=== PATIENT | female | born 1935 | race Hispanic/Latino ===

== ENCOUNTER 2021-10-01 06:26 | Inpatient (IN) | payer MEDICARE, OTHER ==
[~2021-10-01] VITALS: Ht 152.4 cm; Wt 61.3 kg
[2021-10-01] MEDS ORDERED: ONDANSETRON 4MG INJ IVP ONE (06:30)
[2021-10-01] MEDS ORDERED: MORPHINE 4 MG SYG IVP ONE (06:30)
[2021-10-01 06:49] LABS: BASOPHILS % (AUTO) 1.4 % (0.0-5.0); EOSINOPHILS % (AUTO) 3.5 % (0.0-8.0); HEMATOCRIT 33.2 % (36-48); LYMPHOCYTES % (AUTO) 22.9 % (21.0-51.0); MEAN CORPUSCULAR HEMOGLOBIN 25.7 pg (27.0-33.0); MEAN CORPUSCULAR HGB CONC 31.9 g/dL (32.0-36.0); MEAN CORPUSCULAR VOLUME 80.6 fL (79-99); MONOCYTES % (AUTO) 6.8 % (3.0-13.0); NEUTROPHILS % (AUTO) 63.6 % (40.0-77.0); PLATELET COUNT (AUTO) 267 K/uL (130-400); RED BLOOD CELL COUNT(AUTO) 4.12 MIL/uL (4.00-5.50); RED CELL DISTRIBUTION WIDTH 16.7 % (11.0-15.5)
[2021-10-01 07:01] LABS: ALBUMIN 3.9 g/dL (3.5-5.0); CREATININE 1.2 mg/dL (0.5-1.5); POTASSIUM 4.5 mmol/L (3.5-5.1); TOTAL PROTEIN, SERUM 7.4 g/dL (6.0-8.3)
[2021-10-01] MEDS ORDERED: METF-526 PO (10:32)
[2021-10-01] MEDS ORDERED: PRAV20TA4 PO (10:32)
[2021-10-01] MEDS ORDERED: LEVO25TA85 PO (10:32)
[2021-10-01] MEDS ORDERED: LOSA50TA64 PO (10:32)
[2021-10-01] MEDS ORDERED: AMLO-257 PO (10:32)
[2021-10-01] MEDS ORDERED: ASPI-1443 PO (10:32)
[2021-10-01] MEDS ORDERED: WARF3TAB59 PO (10:33)
[2021-10-01 10:51] LABS: INR 2.06 (0.85-1.15); PROTHROMBIN TIME 21.6 SEC (9.6-11.6)
[2021-10-01 10:52] LABS: PARTIAL THROMBOPLASTIN TIME 29.8 SEC (26.3-35.5)
[2021-10-01] MEDS ORDERED: ONDANSETRON 4MG INJ IVP PRN (11:30)
[2021-10-01] MEDS ORDERED: ACETAMINOPHEN 325 MG TAB PO PRN (11:30)
[2021-10-01] MEDS ORDERED: HYDRALAZINE 20MG/ML VIAL IV PRN (11:30)
[2021-10-01] MEDS ORDERED: GLUCAGON 1MG KIT 1 MG ML IM PRN (12:30)
[2021-10-01] MEDS ORDERED: DEXTROSE 50%-WATER 50 ML DISP.SYRIN IV PRN (12:30)
[2021-10-01 14:45] VITALS: BP 152/90
[2021-10-01] MEDS: MORPHINE 2 MG SYG IVP PRN ×2 (14:46→21:02)
[2021-10-01] MEDS: INSULIN HUMULIN R 100 UNIT/ML 3ML SQ SCH ×2 (16:30→21:00)
[2021-10-01] MEDS: WARFARIN SODIUM 1 MG TAB PO SCH (16:58)
[2021-10-01 20:00] VITALS: BP 134/83
[2021-10-01] MEDS: SIMVASTATIN 20 MG TABLET PO SCH (21:01)
[2021-10-01] MEDS: LOSARTAN 50 MG TABLET PO SCH (21:01)
[2021-10-02] VITALS (7 sets, daily range): BP systolic 126–146; BP diastolic 57–83
[2021-10-02] MEDS: MORPHINE 2 MG SYG IVP PRN ×4 (04:29→18:02)
[2021-10-02 05:26] LABS: HEMATOCRIT 32.2 % (36-48); MEAN CORPUSCULAR HEMOGLOBIN 26.1 pg (27.0-33.0); MEAN CORPUSCULAR HGB CONC 32.9 g/dL (32.0-36.0); MEAN CORPUSCULAR VOLUME 79.3 fL (79-99); RED BLOOD CELL COUNT(AUTO) 4.06 MIL/uL (4.00-5.50); RED CELL DISTRIBUTION WIDTH 16.7 % (11.0-15.5); WHITE BLOOD COUNT (AUTO) 7.3 K/uL (4.8-10.8)
[2021-10-02 05:34] LABS: CREATININE 1.1 mg/dL (0.5-1.5)
[2021-10-02 05:37] LABS: INR 2.61 (0.85-1.15); PROTHROMBIN TIME 26.9 SEC (9.6-11.6)
[2021-10-02 05:39] LABS: HEMOGLOBIN A1C 6.9 % (4.0-6.0)
[2021-10-02] MEDS: LEVOTHYROXINE 25 MCG TABLET PO SCH (06:40)
[2021-10-02] MEDS: INSULIN HUMULIN R 100 UNIT/ML 3ML SQ SCH ×4 (06:42→21:00)
[2021-10-02] MEDS: ASPIRIN 81 MG EC TAB PO SCH (09:43)
[2021-10-02] MEDS: CALCITONIN 3.7 ML AEROSOL NS SCH (09:43)
[2021-10-02] MEDS: AMLODIPINE 5 MG TAB PO SCH (09:43)
[2021-10-02] MEDS: LOSARTAN 50 MG TABLET PO SCH ×2 (09:43→21:29)
[2021-10-02] MEDS: WARFARIN SODIUM 1 MG TAB PO SCH (16:29)
[2021-10-02] MEDS ORDERED: MORPHINE 4 MG SYG IVP PRN (19:00)
[2021-10-02] MEDS: SIMVASTATIN 20 MG TABLET PO SCH (21:29)
[2021-10-03 03:05] VITALS: BP 146/73
[2021-10-03] MEDS: MORPHINE 4 MG SYG IVP PRN ×3 (03:34→17:47)
[2021-10-03 05:28] LABS: BASOPHILS % (AUTO) 0.8 % (0.0-5.0); EOSINOPHILS % (AUTO) 1.2 % (0.0-8.0); HEMATOCRIT 32.9 % (36-48); LYMPHOCYTES % (AUTO) 11.6 % (21.0-51.0); MEAN CORPUSCULAR HEMOGLOBIN 25.8 pg (27.0-33.0); MEAN CORPUSCULAR HGB CONC 32.2 g/dL (32.0-36.0); MONOCYTES % (AUTO) 8.9 % (3.0-13.0); NEUTROPHILS % (AUTO) 77.1 % (40.0-77.0); PLATELET COUNT (AUTO) 208 K/uL (130-400); RED BLOOD CELL COUNT(AUTO) 4.11 MIL/uL (4.00-5.50); RED CELL DISTRIBUTION WIDTH 16.7 % (11.0-15.5); WHITE BLOOD COUNT (AUTO) 9.3 K/uL (4.8-10.8)
[2021-10-03 05:37] LABS: POTASSIUM 3.9 mmol/L (3.5-5.1)
[2021-10-03] MEDS: LEVOTHYROXINE 25 MCG TABLET PO SCH (06:08)
[2021-10-03] MEDS: INSULIN HUMULIN R 100 UNIT/ML 3ML SQ SCH ×4 (06:20→20:47)
[2021-10-03 08:00] VITALS: BP 160/85
[2021-10-03] MEDS: ASPIRIN 81 MG EC TAB PO SCH (09:18)
[2021-10-03] MEDS: LOSARTAN 50 MG TABLET PO SCH ×2 (09:19→20:48)
[2021-10-03] MEDS: AMLODIPINE 5 MG TAB PO SCH (09:19)
[2021-10-03] MEDS ORDERED: HYDROMORPHONE 0.5 MG SYG (0.5MG/0.5ML) IVP PRN (11:30)
[2021-10-03] MEDS: CALCITONIN 3.7 ML AEROSOL NS SCH (11:33)
[2021-10-03 12:00] VITALS: BP 127/55
[2021-10-03 16:00] VITALS: BP 131/76
[2021-10-03] MEDS: CYCLOBENZAPRINE HCL 10 MG TABLET PO PRN (17:47)
[2021-10-03] MEDS: WARFARIN SODIUM 1 MG TAB PO SCH (17:49)
[2021-10-03 20:00] VITALS: BP 144/76
[2021-10-03 20:05] LABS: APPEARANCE,URINE Cloudy (CLEAR); BILIRUBIN,URINE Negative (NEGATIVE); COLOR,URINE Yellow (YELLOW); GLUCOSE, URINE (UA) Negative (NEGATIVE); KETONES,URINE Trace mg/dL (NEGATIVE); LEUKOCYTE ESTERASE ,URINE Moderate (NEGATIVE); NITRATE,URINE Negative (NEGATIVE); OCCULT BLOOD,URINE Moderate (NEGATIVE); PH,URINE 5.5 (5.0-8.0); PROTEIN,URINE POS 1+ mg/dL (NEGATIVE); UROBILINOGEN,URINE 0.2 mg/dL (0.2-1.0)
[2021-10-03 20:14] LABS: MUCUS,URINE Moderate LPF (None Seen); SQUAMOUS EPITHELIAL CELL,UR Few /HPF (0-2)
[2021-10-03 20:26] LABS: BACTERIA,URINE Moderate /HPF (None Seen)
[2021-10-03 20:27] LABS: HYALINE CASTS, URINE 0-1 /LPF (0-1 /LPF)
[2021-10-03 20:28] LABS: TRANSITIONAL EPI CELLS,URINE Rare /HPF (None Seen)
[2021-10-03] MEDS: SIMVASTATIN 20 MG TABLET PO SCH (20:48)
[2021-10-04 00:33] VITALS: BP 137/95
[2021-10-04 04:37] VITALS: BP 137/71
[2021-10-04 05:28] LABS: BASOPHILS % (AUTO) 0.6 % (0.0-5.0); EOSINOPHILS % (AUTO) 3.7 % (0.0-8.0); HEMATOCRIT 32.7 % (36-48); LYMPHOCYTES % (AUTO) 15.6 % (21.0-51.0); MEAN CORPUSCULAR HEMOGLOBIN 25.5 pg (27.0-33.0); MEAN CORPUSCULAR HGB CONC 32.1 g/dL (32.0-36.0); MEAN CORPUSCULAR VOLUME 79.6 fL (79-99); MONOCYTES % (AUTO) 11.7 % (3.0-13.0); NEUTROPHILS % (AUTO) 67.9 % (40.0-77.0); PLATELET COUNT (AUTO) 214 K/uL (130-400); RED BLOOD CELL COUNT(AUTO) 4.11 MIL/uL (4.00-5.50); RED CELL DISTRIBUTION WIDTH 16.5 % (11.0-15.5); WHITE BLOOD COUNT (AUTO) 7.8 K/uL (4.8-10.8)
[2021-10-04 06:01] LABS: CREATININE 1.1 mg/dL (0.5-1.5); POTASSIUM 3.8 mmol/L (3.5-5.1)
[2021-10-04] MEDS: INSULIN HUMULIN R 100 UNIT/ML 3ML SQ SCH ×4 (06:07→20:07)
[2021-10-04] MEDS: LEVOTHYROXINE 25 MCG TABLET PO SCH (06:22)
[2021-10-04] MEDS: AMLODIPINE 5 MG TAB PO SCH (08:37)
[2021-10-04] MEDS: ASPIRIN 81 MG EC TAB PO SCH (08:37)
[2021-10-04] MEDS: LOSARTAN 50 MG TABLET PO SCH ×2 (08:37→20:08)
[2021-10-04] MEDS: CYCLOBENZAPRINE HCL 10 MG TABLET PO PRN (08:40)
[2021-10-04] MEDS: CALCITONIN 3.7 ML AEROSOL NS SCH (08:41)
[2021-10-04 09:14] VITALS: BP 133/81
[2021-10-04] MEDS ORDERED: LIDOCAINE 5% TOPICAL PATCH TP ONE (11:00)
[2021-10-04] MEDS ORDERED: LACTULOSE 20 GM/30 ML UDCUP PO ONE (11:00)
[2021-10-04] MEDS ORDERED: KETOROLAC 15MG/ML VIAL (15MG/ML) IV ONE (11:00)
[2021-10-04] MEDS: CEFTRIAXONE 1G VIAL IVP SCH (11:24)
[2021-10-04 12:39] VITALS: BP 133/71
[2021-10-04] MEDS ORDERED: LACTULOSE 20 GM/30 ML UDCUP PO SCH (14:00)
[2021-10-04] MEDS: WARFARIN SODIUM 1 MG TAB PO SCH (16:40)
[2021-10-04 17:40] VITALS: BP 133/70
[2021-10-04] MEDS: SIMVASTATIN 20 MG TABLET PO SCH (20:08)
[2021-10-04 20:25] VITALS: BP 129/74
[2021-10-04] MEDS: KETOROLAC 15MG/ML VIAL (15MG/ML) IV PRN (21:30)
[2021-10-05] VITALS (7 sets, daily range): BP systolic 124–138; BP diastolic 62–72
[2021-10-05 05:06] LABS: BASOPHILS % (AUTO) 0.5 % (0.0-5.0); EOSINOPHILS % (AUTO) 4.2 % (0.0-8.0); HEMATOCRIT 34.2 % (36-48); LYMPHOCYTES % (AUTO) 20.9 % (21.0-51.0); MEAN CORPUSCULAR HEMOGLOBIN 25.5 pg (27.0-33.0); MEAN CORPUSCULAR HGB CONC 32.5 g/dL (32.0-36.0); MEAN CORPUSCULAR VOLUME 78.6 fL (79-99); MONOCYTES % (AUTO) 11.9 % (3.0-13.0); PLATELET COUNT (AUTO) 231 K/uL (130-400); RED BLOOD CELL COUNT(AUTO) 4.35 MIL/uL (4.00-5.50); RED CELL DISTRIBUTION WIDTH 16.9 % (11.0-15.5); WHITE BLOOD COUNT (AUTO) 8.8 K/uL (4.8-10.8)
[2021-10-05 05:20] LABS: CREATININE 1.2 mg/dL (0.5-1.5); POTASSIUM 3.4 mmol/L (3.5-5.1)
[2021-10-05] MEDS: LEVOTHYROXINE 25 MCG TABLET PO SCH (05:45)
[2021-10-05] MEDS: INSULIN HUMULIN R 100 UNIT/ML 3ML SQ SCH ×2 (06:53→19:59)
[2021-10-05] MEDS: ASPIRIN 81 MG EC TAB PO SCH (10:47)
[2021-10-05] MEDS: LOSARTAN 50 MG TABLET PO SCH ×2 (10:48→20:43)
[2021-10-05] MEDS: LIDOCAINE 5% TOPICAL PATCH TP SCH (10:48)
[2021-10-05] MEDS: CYCLOBENZAPRINE HCL 10 MG TABLET PO PRN (10:48)
[2021-10-05] MEDS: KETOROLAC 15MG/ML VIAL (15MG/ML) IV PRN (10:49)
[2021-10-05] MEDS: CEFTRIAXONE 1G VIAL IVP SCH (10:49)
[2021-10-05] MEDS: CALCITONIN 3.7 ML AEROSOL NS SCH (10:51)
[2021-10-05] MEDS: AMLODIPINE 5 MG TAB PO SCH (11:02)
[2021-10-05] MEDS: MORPHINE 4 MG SYG IVP PRN (11:09)
[2021-10-05] MEDS: SIMVASTATIN 20 MG TABLET PO SCH (20:43)
[2021-10-05] MEDS: WARFARIN SODIUM 1 MG TAB PO SCH (20:44)
[2021-10-06] MEDS: KETOROLAC 15MG/ML VIAL (15MG/ML) IV PRN ×3 (03:31→22:58)
[2021-10-06 04:26] VITALS: BP 120/65
[2021-10-06 05:18] LABS: HEMATOCRIT 31.4 % (36-48); MEAN CORPUSCULAR HEMOGLOBIN 25.6 pg (27.0-33.0); MEAN CORPUSCULAR HGB CONC 32.8 g/dL (32.0-36.0); MEAN CORPUSCULAR VOLUME 77.9 fL (79-99); RED BLOOD CELL COUNT(AUTO) 4.03 MIL/uL (4.00-5.50); RED CELL DISTRIBUTION WIDTH 16.6 % (11.0-15.5); WHITE BLOOD COUNT (AUTO) 5.2 K/uL (4.8-10.8)
[2021-10-06] MEDS: LEVOTHYROXINE 25 MCG TABLET PO SCH (05:32)
[2021-10-06 05:35] LABS: CREATININE 1.1 mg/dL (0.5-1.5); POTASSIUM 3.8 mmol/L (3.5-5.1)
[2021-10-06] MEDS: INSULIN HUMULIN R 100 UNIT/ML 3ML SQ SCH ×4 (06:01→20:32)
[2021-10-06 07:48] VITALS: BP 129/72
[2021-10-06] MEDS: CYCLOBENZAPRINE HCL 10 MG TABLET PO PRN (10:05)
[2021-10-06] MEDS: LOSARTAN 50 MG TABLET PO SCH ×2 (10:06→20:36)
[2021-10-06] MEDS: AMLODIPINE 5 MG TAB PO SCH (10:06)
[2021-10-06] MEDS: ASPIRIN 81 MG EC TAB PO SCH (10:06)
[2021-10-06] MEDS: CALCITONIN 3.7 ML AEROSOL NS SCH (10:07)
[2021-10-06] MEDS: LIDOCAINE 5% TOPICAL PATCH TP SCH (10:20)
[2021-10-06] MEDS: CEFTRIAXONE 1G VIAL IVP SCH (10:21)
[2021-10-06 11:43] VITALS: BP 113/68
[2021-10-06] MEDS: WARFARIN SODIUM 1 MG TAB PO SCH (16:00)
[2021-10-06 16:36] VITALS: BP 133/63
[2021-10-06] MEDS: SIMVASTATIN 20 MG TABLET PO SCH (20:36)
[2021-10-06 20:43] VITALS: BP 128/69
[2021-10-06 23:41] VITALS: BP 142/73
[2021-10-07 03:48] VITALS: BP 128/69
[2021-10-07] MEDS: INSULIN HUMULIN R 100 UNIT/ML 3ML SQ SCH ×3 (05:50→16:30)
[2021-10-07] MEDS: LEVOTHYROXINE 25 MCG TABLET PO SCH (06:01)
[2021-10-07] MEDS: KETOROLAC 15MG/ML VIAL (15MG/ML) IV PRN (06:02)
[2021-10-07 06:17] LABS: MEAN CORPUSCULAR HGB CONC 32.7 g/dL (32.0-36.0); MEAN CORPUSCULAR VOLUME 79.3 fL (79-99); RED BLOOD CELL COUNT(AUTO) 4.16 MIL/uL (4.00-5.50); WHITE BLOOD COUNT (AUTO) 4.5 K/uL (4.8-10.8)
[2021-10-07 06:25] LABS: POTASSIUM 3.9 mmol/L (3.5-5.1)
[2021-10-07 08:00] VITALS: BP 128/76
[2021-10-07] MEDS: LIDOCAINE 5% TOPICAL PATCH TP SCH (08:46)
[2021-10-07] MEDS: LOSARTAN 50 MG TABLET PO SCH (08:46)
[2021-10-07] MEDS: ASPIRIN 81 MG EC TAB PO SCH (08:46)
[2021-10-07] MEDS: AMLODIPINE 5 MG TAB PO SCH (08:46)
[2021-10-07] MEDS: CALCITONIN 3.7 ML AEROSOL NS SCH (08:47)
[2021-10-07 12:00] VITALS: BP 123/64
[2021-10-07] MEDS: CEFTRIAXONE 1G VIAL IVP SCH (12:00)
[2021-10-07 16:00] VITALS: BP 132/68
[2021-10-07] MEDS: WARFARIN SODIUM 1 MG TAB PO SCH (17:58)
[2021-10-07 20:20] VITALS: BP_SYST 116; BP_SYST 140; BP_DIAS 54; BP_DIAS 72
[2021-10-07 23:45] VITALS: BP 134/69
== END 2021-10-08 00:10 | DRG 552 ==
LOC: EDH 06:26 → EDHIP 11:13 → OBSVTOIN 11:13 → 3DH 14:40
PROVIDERS: ADMIT Hospitalist; ATTEND Hospitalist
DX: S32.019A Unspecified fracture of first lumbar vertebra, initial encounter for closed fracture (principal); N39.0 Urinary tract infection, site not specified; E11.9 Type 2 diabetes mellitus without complications; E78.5 Hyperlipidemia, unspecified; I10 Essential (primary) hypertension; E03.9 Hypothyroidism, unspecified; Z86.73 Personal history of transient ischemic attack (TIA), and cerebral infarction without residual deficits; Z79.01 Long term (current) use of anticoagulants; W18.39XA Other fall on same level, initial encounter; Y93.89 Activity, other specified; Y92.098 Other place in other non-institutional residence as the place of occurrence of the external cause; Y99.8 Other external cause status
CPT/HCPCS: 36415; 70450; 71045; 72148; 74176; 80048; 80053; 81001; 82948; 83036; 84484; 85025; 85027; 85610; 85730; 87077; 87088; 87186; 93005; 97039; G0378; J0696; J1170; J1815; J1885; J2270; J2405

== ENCOUNTER 2022-01-06 19:07 | Inpatient (IN) | payer MEDICARE ==
[~2022-01-06] VITALS: Ht 152.4 cm; Wt 48.1 kg
[~2022-01-06 19:07] MED LIST: AMLO-257 PO; ASPI-1443 PO; LEVO25TA85 PO; LOSA50TA64 PO; WARF3TAB59 PO
[2022-01-06 19:46] LABS: MEAN CORPUSCULAR HEMOGLOBIN 28.2 pg (27.0-33.0); MEAN CORPUSCULAR HGB CONC 33.6 g/dL (32.0-36.0); MEAN CORPUSCULAR VOLUME 83.9 fL (79-99); PLATELET COUNT (AUTO) 331 K/uL (130-400); RED BLOOD CELL COUNT(AUTO) 4.29 MIL/uL (4.00-5.50); RED CELL DISTRIBUTION WIDTH 18.5 % (11.0-15.5); WHITE BLOOD COUNT (AUTO) 7.2 K/uL (4.8-10.8)
[2022-01-06 19:56] LABS: POTASSIUM 3.9 mmol/L (3.5-5.1)
[2022-01-06 19:58] LABS: INR 2.7 (0.85-1.15); PROTHROMBIN TIME 27.8 SEC (9.6-11.6)
[2022-01-06 19:59] LABS: PARTIAL THROMBOPLASTIN TIME 41.4 SEC (26.3-35.5)
[2022-01-06 20:03] LABS: TOTAL PROTEIN, SERUM 7.9 g/dL (6.0-8.3)
[2022-01-06 20:22] LABS: APPEARANCE,URINE CLEAR (CLEAR); BILIRUBIN,URINE NEGATIVE (NEGATIVE); COLOR,URINE COLORLESS (YELLOW); GLUCOSE, URINE (UA) NEGATIVE (NEGATIVE); KETONES,URINE NEGATIVE (NEGATIVE); LEUKOCYTE ESTERASE ,URINE 500 Leu/uL (NEGATIVE); NITRATE,URINE NEGATIVE (NEGATIVE); OCCULT BLOOD,URINE NEGATIVE (NEGATIVE); PH,URINE 5.5 (5.0-8.0); PROTEIN,URINE NEGATIVE (NEGATIVE); UROBILINOGEN,URINE 0.2 mg/dL (0.2-1.0)
[2022-01-06 20:25] LABS: BAND NEUTROPHILS % (MANUAL) 3 % (0-2); BASOPHILS % (MANUAL) 2 % (0-2); EOSINOPHILS % (MANUAL) 8 % (1-6); LYMPHOCYTES % (MANUAL) 18 % (22-44); MAN.DIFF COMMENT-IMPRESSION MANUAL DIFFERENTIAL; MONOCYTES % (MANUAL) 14 % (2-9); SEGMENTED NEUTROPHILS % 55 % (40-70)
[2022-01-06 20:27] LABS: PLATELET MORPHOLOGY COMMENT ADEQUATE
[2022-01-06 20:36] LABS: BACTERIA,URINE RARE /HPF (None Seen); MUCUS,URINE RARE LPF (None Seen); RBC,URINE 0-1 /HPF (0-1); SQUAMOUS EPITHELIAL CELL,UR RARE /HPF (0-2); WBC,URINE 26-50 /HPF (0-1)
[2022-01-06] MEDS ORDERED: CEFTRIAXONE 1G VIAL IVP STA (21:46)
[2022-01-07] MEDS ORDERED: ONDANSETRON 4MG INJ IV PRN
[2022-01-07] MEDS ORDERED: LACTULOSE 20 GM/30 ML UDCUP PO PRN
[2022-01-07] MEDS ORDERED: MORPHINE 4 MG SYG IV PRN
[2022-01-07] MEDS ORDERED: ACETAMINOPHEN 325 MG TAB PO PRN ×2
[2022-01-07] MEDS ORDERED: ACETAMINOPHEN WITH CODEINE 1 TAB TAB PO PRN
[2022-01-07] MEDS ORDERED: HYDRALAZINE 20MG/ML VIAL IV PRN
[2022-01-07] MEDS ORDERED: MAG/ALUM/SIMETH 30 ML UDCUP PO PRN
[2022-01-07 01:00] VITALS: BP 129/61
[2022-01-07 04:00] VITALS: BP 135/82
[2022-01-07 05:17] LABS: HEMATOCRIT 32.9 % (36-48); MEAN CORPUSCULAR HEMOGLOBIN 28.3 pg (27.0-33.0); MEAN CORPUSCULAR HGB CONC 33.4 g/dL (32.0-36.0); MEAN CORPUSCULAR VOLUME 84.6 fL (79-99); RED BLOOD CELL COUNT(AUTO) 3.89 MIL/uL (4.00-5.50)
[2022-01-07 05:26] LABS: CREATININE 0.8 mg/dL (0.5-1.5); POTASSIUM 3.5 mmol/L (3.5-5.1)
[2022-01-07 05:39] LABS: HEMOGLOBIN A1C 6.3 % (4.0-6.0)
[2022-01-07] MEDS: INSULIN HUMULIN R 100 UNIT/ML 3ML SQ SCH ×4 (05:41→20:07)
[2022-01-07 08:00] VITALS: BP 147/76
[2022-01-07] MEDS ORDERED: LOSARTAN 50 MG TABLET PO SCH (09:51)
[2022-01-07 09:55] LABS: INR 2.76 (0.85-1.15); PROTHROMBIN TIME 28.4 SEC (9.6-11.6)
[2022-01-07 09:57] LABS: PARTIAL THROMBOPLASTIN TIME 41.3 SEC (26.3-35.5)
[2022-01-07 11:30] VITALS: BP 145/71
[2022-01-07] MEDS: LOSARTAN 50 MG TABLET PO SCH ×2 (12:19→19:18)
[2022-01-07] MEDS: FAMOTIDINE 20MG VIAL IV SCH ×2 (12:19→19:18)
[2022-01-07 20:00] VITALS: BP 142/77
[2022-01-07] MEDS ORDERED: PHYTONADIONE 10 MG in 0.9%NACL 50ML 50 ML IVPB SCH ×2 (22:30→23:30)
[2022-01-07] MEDS: CEFTRIAXONE 1G VIAL IV SCH ×2 (23:08)
[2022-01-07] MEDS ORDERED: PHARMACY COMMUNICATION MISC SCH (23:30)
[2022-01-07] MEDS ORDERED: PHYTONADIONE 10 MG/1 ML AMP ONE (23:32)
[2022-01-08] VITALS: BP 140/79
[2022-01-08 03:30] VITALS: BP 154/69
[2022-01-08 05:03] LABS: BASOPHILS % (AUTO) 1.6 % (0.0-5.0); EOSINOPHILS % (AUTO) 11.2 % (0.0-8.0); HEMATOCRIT 33.7 % (36-48); LYMPHOCYTES % (AUTO) 27.6 % (21.0-51.0); MEAN CORPUSCULAR HEMOGLOBIN 27.8 pg (27.0-33.0); MEAN CORPUSCULAR HGB CONC 33.2 g/dL (32.0-36.0); MEAN CORPUSCULAR VOLUME 83.6 fL (79-99); MONOCYTES % (AUTO) 10.3 % (3.0-13.0); PLATELET COUNT (AUTO) 311 K/uL (130-400); RED BLOOD CELL COUNT(AUTO) 4.03 MIL/uL (4.00-5.50); RED CELL DISTRIBUTION WIDTH 17.7 % (11.0-15.5); WHITE BLOOD COUNT (AUTO) 5.7 K/uL (4.8-10.8)
[2022-01-08] MEDS: INSULIN HUMULIN R 100 UNIT/ML 3ML SQ SCH ×2 (05:12→11:30)
[2022-01-08 05:16] LABS: INR 1.62 (0.85-1.15); PROTHROMBIN TIME 17.2 SEC (9.6-11.6)
[2022-01-08] MEDS ORDERED: LEVOTHYROXINE 25 MCG TABLET PO SCH (06:30)
[2022-01-08 09:00] VITALS: BP 140/77
[2022-01-08] MEDS: FAMOTIDINE 20MG VIAL IV SCH (09:08)
[2022-01-08] MEDS: LOSARTAN 50 MG TABLET PO SCH (09:09)
[2022-01-08 11:20] VITALS: BP 132/70
[2022-01-08] MEDS ORDERED: CEPH500B PO (12:57)
== END 2022-01-08 15:45 | disposition home or self-care (01) | DRG 65 ==
LOC: EDH 19:07 → EDHIP 23:40 → 4BH 01-07 00:41
PROVIDERS: ADMIT Hospitalist; ATTEND Hospitalist
DX: I62.01 Nontraumatic acute subdural hemorrhage (principal); M48.56XA Collapsed vertebra, not elsewhere classified, lumbar region, initial encounter for fracture; N39.0 Urinary tract infection, site not specified; I10 Essential (primary) hypertension; E03.9 Hypothyroidism, unspecified; E11.9 Type 2 diabetes mellitus without complications; E78.5 Hyperlipidemia, unspecified; G89.29 Other chronic pain; Z86.73 Personal history of transient ischemic attack (TIA), and cerebral infarction without residual deficits; Z79.01 Long term (current) use of anticoagulants
CPT/HCPCS: 36415; 70450; 70551; 71045; 80048; 80053; 80061; 81001; 82948; 83036; 84443; 84484; 85025; 85027; 85610; 85730; 87088; 92522; 92610; 93005; 97039; 99291; G0378; J0696; J3430; J3490

== ENCOUNTER → 2022-01-28 | Outpatient (CLI) | payer MEDICARE ==
[~2022-01-28] MED LIST changes: +CEPH500B PO; -WARF3TAB59 PO
== END | disposition home or self-care (01) ==
LOC: RAH 14:09
PROVIDERS: ATTEND Internal Medicine Cardiovascular Disease
DX: I62.00 Nontraumatic subdural hemorrhage, unspecified (principal); I63.9 Cerebral infarction, unspecified
CPT/HCPCS: 70450